=== PATIENT | male | born 1990 | race Caucasian/White ===

== ENCOUNTER 2016-07-16 11:32 | Emergency (ER) | payer OTHER ==
[~2016-07-16] VITALS: Ht 175.3 cm; Wt 72.6 kg
--- NOTE | 2016-07-16 12:07 | ED UPPER/LOWER EXTREMITY COMPL ---
History of Present Illness General Chief Complaint: Foot or Ankle Injury Stated Complaint: RT FOOT PAIN S/P FALL Source: patient Exam Limitations: no limitations Vital Signs & Intake/Output Vital Signs & Intake/Output ED Intake and Output 07/17 0000 07/16 1200 Intake Total Output Total Balance Patient 160 lb Weight Allergies Coded Allergies: NO KNOWN ALLERGIES (03/29/14) Reconcile Medications Fluticasone Propionate (Cutivate) 0.05 % CREAM..G. 1 VAMSHI TOP BID rash apply to affected area(s) Ibuprofen 600 MG TABLET 1 TAB PO TID PRN pain with food Oxycodone HCl/Acetaminophen (Percocet 5-325 MG Tablet) 5 MG-325 MG TABLET 1 TAB PO 4 TIMES/DAY PRN pain Triage Note: C/O PAIN IN R FOOT, WITH SWELLING WITH DIFFIUCLTY BEARING WEIGHT. Triage Nurses Notes Reviewed? yes HPI: 25-year-old male with severe throbbing right foot pain dorsolateral aspect after an injury that occurred when he fell down approximately 45 stairs yesterday chasing after his dog out of the house. He has moderate to severe swelling and ecchymosis, severe pain with weightbearing and walking. No previous injuries. No ankle pain. No other injuries. No treatment thus far except for Motrin this morning with minimal relief. Patient also complains of a chronic rash to the right hand dorsum in between the fingers and at the knuckles. 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 He has small amount of dermatitis. Rash on the left hand as well but it is nowhere significantly bad as the right. He has tried typx-mps-[id number] medication with minimal relief. He has never had medical evaluation for this. (MAEVE BOWERS) Past History Travel History Traveled to [place] past 21 day No Medical History Any Pertinent Medical History? none Neurological: NONE EENT: NONE Cardiovascular: NONE Respiratory: NONE Gastrointestinal: NONE Hepatic: NONE Renal: NONE Musculoskeletal: NONE Psychiatric: NONE Endocrine: NONE Surgical History Surgical History: R CLAVICLE Psychosocial History What is your primary language Mohawk Tobacco Use: Current Daily Use Daily Tobacco Use Amount/Type: => 5 Cigarettes daily ETOH Use: occasional use Family History Hx Contributory? No (MAEVE BOWERS) Review of Systems Review of Systems Constitutional: Reports: see HPI. EENTM: Reports: no symptoms. Respiratory: Reports: no symptoms. Cardiovascular: Reports: no symptoms. Gastrointestinal/Abdominal: Reports: no symptoms. Genitourinary: Reports: no symptoms. Musculoskeletal: Reports: see HPI. Skin: Reports: see HPI. Neurological/Psychological: Reports: no symptoms. Hematologic/Endocrine: Reports: no symptoms. Immunological: Reports: no symptoms. All Other Systems: Reviewed and Negative (MAEVE BOWERS) Physical Exam Physical Exam General Appearance: well developed/nourished Comments: Well-developed well-nourished no apparent distress. HEENT: Atraumatic, extraocular motion intact Neck: Supple, no lymphadenopathy Back: Nontender Respiratory: No respiratory distress Extremities: No edema, full range of motion Neuro: Alert and oriented x3 Psych: Mood affect normal, normal memory normal judgment. Skin: Warm and dry, right hand dorsum with chronic excoriation and cracked dry skin that is thickened and mildly scaling. No erythema. Most concentrated over the knuckles and between the space. Right lower extremity, ankle exam is benign, full range of motion. There is severe tenderness to the right foot dorsum with palpation of the third fourth and fifth metatarsal bace region. There is severe pain with inversion range of motion. Neurovascularly intact (MAEVE BOWERS) Progress Differential Diagnosis: compartment syndrome, contusion, dislocation, fracture, sprain, tendon injury, WARTS ON HAND, PSORIASIS, DERMATITIS. Plan of Care: Orders Procedure Date/time Status XRY-FOOT COMPLETE, RIGHT 07/16 1148 Active Diagnostic Imaging: Viewed by Me: Radiology Read. Discussed w/RAD: Radiology Read. Radiology Impression: PATIENT: YADI BRYAN PRESENT AGE: 25 PATIENT ACCOUNT NO: [id number] : 88 LOCATION: [facility] ([facility] ORDERING PHYSICIAN: MAEVE MONTE SERVICE DATE: 07/16/16 EXAM TYPE : RAD - XRY-FOOT COMPLETE, R EXAMINATION: XR FOOT, RIGHT CLINICAL INFORMATION: Fall yesterday. Pain, swelling COMPARISON: None TECHNIQUE: 4 views of the right foot. FINDINGS: The alignment is within normal limits. There is no fracture, focal lesion or periosteal new bone. IMPRESSION: No fracture or subluxation DICTATED BY: VIJAY DE LA TORRE MD DATE/TIME DICTATED:07/16/16 1313 SURPLUS PROPERTY DISPOSAL AGENT:DARELL DATE/TIME TRANSCRIBED: Comments: X-ray negative, Scott wrap applied to the right foot and ankle by myself. Recommend rest ice compression and elevation pain medication and orthopedic follow-up, he has crutches at home, recommend nonweightbearing for the next few days and then weightbearing as tolerated. He is not getting better he should follow-up with orthopedist for repeat x-ray to look for occult fracture We will also place him on steroid cream for his right hand, this may represent warts which was discussed with patient and dermatology follow-up was recommended (MAEVE BOWERS) Departure Departure Disposition: HOME OR SELF CARE Condition: Stable Clinical Impression Primary Impression: Sprain of foot, right Qualifiers: Encounter type: initial encounter Qualified Code: S93.601A - Unspecified sprain of right foot, initial encounter Secondary Impressions: Acute hand eczema Referrals: YAMILA WRIGHT,ROSIE HEADLEY MD,FERMÍN Villanueva UNKNOWN (PCP/Family) Additional Instructions: Use crutches for the next few days and keep Scott wrap on the foot, elevate as much as possible to reduce swelling. Follow-up with orthopedist, Dr. Leger or your orthopedist if no better in the next 1-2 weeks. Take ibuprofen for pain and inflammation and Percocet for severe pain. Use the cortisone cream for your hand twice a day. Please follow up with photo producer, Dr. Headley, for reevaluation and further treatment Departure Forms: Customer Survey General Discharge Information Prescriptions: Current Visit Scripts Ibuprofen 1 TAB PO TID PRN pain #30 TAB with food Oxycodone HCl/Acetaminophen (Percocet 5-325 MG Tablet) 1 TAB PO 4 TIMES/DAY PRN pain #10 TAB Fluticasone Propionate (Cutivate) 1 VAMSHI TOP BID #30 GM apply to affected area(s) (MAEVE BOWERS) PA/STAY CUTTER Co-Sign Statement Statement: ED Attending supervision documentation- [] I saw and evaluated the patient. I have also reviewed all the pertinent lab results and diagnostic results. I agree with the findings and the plan of care as documented in the PA's/STAY CUTTER's documentation. [X] I have reviewed the ED Record and agree with the PA's/STAY CUTTER's documentation. [] Additions or exceptions (if any) to the PAs/STAY CUTTER's note and plan are summarized below: [] (OSCAR CARCAMO DO)
--- NOTE | 2016-07-16 13:19 | RADIOLOGY REPORT ---
EXAMINATION: XR FOOT, RIGHT CLINICAL INFORMATION: Fall yesterday. Pain, swelling COMPARISON: None TECHNIQUE: 4 views of the right foot. FINDINGS: The alignment is within normal limits. There is no fracture, focal lesion or periosteal new bone. IMPRESSION: No fracture or subluxation
[2016-07-16] MEDS ORDERED: PERCOCET 5-3251 EACH PO (13:26)
[2016-07-16] MEDS ORDERED: IBUPROFEN600 M1 PO (13:26)
[2016-07-16] MEDS ORDERED: CUTIVATE30 GM TOP (13:26)
[2016-07-16 13:37] VITALS: BP 125/74
== END 2016-07-16 13:37 ==
LOC: ERH 11:32
DX: S93.601A Unspecified sprain of right foot, initial encounter (principal); L30.9 Dermatitis, unspecified; W10.9XXA Fall (on) (from) unspecified stairs and steps, initial encounter; Y93.89 Activity, other specified; Y92.009 Unspecified place in unspecified non-institutional (private) residence as the place of occurrence of the external cause
CPT/HCPCS: 73630-RT